=== PATIENT | male | born 1960 | race American Indian/Alaskan Native ===

== ENCOUNTER 2021-05-13 07:56 | Day surgery (SDC) | payer MEDICAID ==
[2021-05-13] MEDS ORDERED: ASPIRIN EC 325 MG TAB PO NR (08:41)
[2021-05-13] MEDS ORDERED: SODIUM CHLORIDE 0.9% 500 ML 500 ML IV SCH (09:00)
[2021-05-13 09:19] LABS: Basophils % (Auto) 0.7 % (0.0-1.8); Eosinophils # (Auto) 0.1 K/mm3 (0.0-0.4); Eosinophils % (Auto) 0.8 % (0.0-4.3); Lymphocytes # (Auto) 2.1 K/mm3 (1.2-5.4); Lymphocytes % (Auto) 32.3 % (13.4-35.0); Mean Corpuscular HGB Conc 33 % (32-34); Mean Corpuscular Volume 96 fl (84-94); Monocytes # (Auto) 0.4 K/mm3 (0.0-0.8); Monocytes % (Auto) 5.7 % (0.0-7.3); Platelet Count 232 K/mm3 (140-440); Red Blood Count 4.06 M/mm3 (3.65-5.03); Red Cell Distribution Width 13.1 % (13.2-15.2)
[2021-05-13 09:29] LABS: Blood Urea Nitrogen 10 mg/dL (9-20); Calcium 8.7 mg/dL (8.4-10.2); Hemolysis Index 17
[2021-05-13] MEDS ORDERED: HEPARIN 10,000 UNITS/10 ML VIAL ONE (09:32)
[2021-05-13] MEDS ORDERED: HEPARIN/NS 5000 UNIT/500ML 1,000 ML IR ONE (09:32)
[2021-05-13] MEDS ORDERED: LIDOCAINE (2%) 20 MG/1 ML VIAL 20 ML MDV INFILTRATI ONE (09:33)
[2021-05-13 09:37] LABS: BUN/Creatinine Ratio 17
[2021-05-13] MEDS ORDERED: CLOPIDOGREL 75 MG TAB ONE (09:37)
[2021-05-13 09:41] LABS: INR 0.85 (0.87-1.13)
[2021-05-13] MEDS: MIDAZOLAM 2 MG/2 ML INJ ONE ×2 (10:08→10:37)
[2021-05-13] MEDS: fentaNYL 100 MCG/2 ML INJ ONE ×2 (10:09→10:37)
[2021-05-13] MEDS ORDERED: HEPARIN/NS 5000 UNIT/500ML 500 ML IR ONE (10:27)
[2021-05-13] MEDS ORDERED: traMADol 50 MG TAB PO PRN (10:56)
[2021-05-13] MEDS ORDERED: HYDROcodone/ACETAMINOPHEN 5-325 MG TAB PO PRN (10:56)
[2021-05-13] MEDS ORDERED: CLOPIDOGREL 75 MG TAB PO ONE (10:59)
--- NOTE | 2021-05-13 11:00 | Short Stay Summary ---
Short Stay Documentation Date of service: 05/13/21 - History H&P: obtained from office - Allergies and Medications Current Medications: Allergies No Known Allergies Allergy (Unverified 05/13/21 08:41) Home Medications Medication Instructions Recorded Confirmed Last Taken Type AtorvaSTATin [Lipitor] 10 mg PO QHS 05/13/21 05/13/21 05/12/21 History 10 MG Baclofen [Lioresal] 10 mg PO DAILY 05/13/21 05/13/21 05/12/21 History 10 MG Clopidogrel [Plavix] 75 mg PO QDAY 05/13/21 05/13/21 05/13/21 History 75 MG Gabapentin [Neurontin] 600 mg PO Q8H 05/13/21 05/13/21 05/12/21 History 3 TABS amLODIPine [Norvasc] 10 mg PO DAILY 05/13/21 05/13/21 05/12/21 History 10 MG Active Medications Clopidogrel Bisulfate (Clopidogrel 75 Mg Tab) 75 mg PO QDAY ONE Stop: 05/13/21 11:00 Sodium Chloride (Nacl 0.9% 500 Ml) 500 mls @ 50 mls/hr IV DIRECT NATAN Stop: 05/13/21 18:59 Last Admin: 05/13/21 10:08 Dose: 200 mls - Brief post op/procedure progress note Date of procedure: 05/13/21 Pre-op diagnosis: cad Post-op diagnosis: same - Disposition Condition at discharge: Good Disposition: 01 HOME / SELF CARE / HOMELESS Short Stay Discharge Plan Activity: no restrictions Weight Bearing Status: Non-Weight Bearing Diet: low cholesterol, low salt Wound: keep clean and dry Follow up with: ARSALAN DOWNS MD [Primary Care Provider] - 7 Days
[2021-05-13] MEDS ORDERED: SODIUM CHLORIDE 0.9% 1000 ML 1,000 ML IV SCH (12:00)
--- NOTE | 2021-05-13 12:27 | Cardiac Catherization Report ---
DATE OF PROCEDURE: 05/13/2021 CORONARY ANGIOGRAM REPORT PROCEDURES PERFORMED: 1. Selective left and right coronary angiogram. 2. Left ventriculogram. 3. Attempted PCI of the right coronary artery. 4. Successful deployment of Mynx extravascular closure device. AWNING SPREADER: Anatoly Villavicencio MD INDICATIONS: The patient is a 60-year-old with multiple cardiac risk factors and history of CVA. He does not walk on a regular basis at baseline secondary to CVA and residual hemiparesis and hemiplegia. He underwent a stress test that showed significant area of infarction with wall motion abnormality. In view of this, we decided to proceed with the left heart catheterization. PROCEDURE DETAILS: 1. The patient was prepped and draped in a sterile fashion after informed consent. 2. The right groin was anesthetized using local Lidocaine infiltration. 3. The right femoral artery was entered using the Seldinger technique, followed by the placement of a 6-Z[place]an sheath. 4. Selective left and right coronary angiography was performed using 6-[place]an Kera catheters. Angiograms were done in multiple projections. 5. Selective left ventricular angiography was done using a 6-[place]an pigtail catheter. Left ventricular angiography was performed in the right anterior oblique projection. 6. The catheters were withdrawn, the sheath removed, and hemostasis was achieved. 7. The patient was transferred to the post cardiac catheterization unit in stable condition. There were no complications, equipment malfunction, or technical difficulties. Mynx extravascular closure device was used. Complete hemostasis obtained. FINDINGS: HEMODYNAMICS: AO 112/69, LV 112, LVEDP is 20. LEFT VENTRICULOGRAPHY: Done in 30-degree MOLINA projection shows grossly preserved LV systolic function. Study inadequate to assess wall motion abnormalities. ANGIOGRAM DETAILS: 1. Left main is angiographically normal. 2. LAD is a medium caliber highly ectatic vessel. It is completely occluded distally. 3. The circumflex is a medium caliber highly ectatic vessel. OM1 has a long 70% ectatic stenosis. 4. The right coronary artery is a large heavily calcified ectatic vessel. There is an 80% proximal stenosis followed by a 90% distal stenosis. 5. Faint grade I-II contralateral collaterals are seen filling the distal LAD. IMPRESSION: 1. Severe triple vessel coronary artery disease including 100% occlusion of the left anterior descending, 70% occlusion of the obtuse marginal, 90% distal and 80% mid right coronary artery stenosis. 2. Grossly preserved left ventricular function. PLAN: In short, the patient is a 60-year-old with a history of CVA and residual hemiparesis, presenting with a stress test that showed a large area of infarct. Cardiac catheterization today revealed triple vessel disease. LAD is distally occluded and is not amenable for PCI. We will proceed with PCI of the right coronary artery and OM. PERCUTANEOUS INTERVENTION DETAILS: Intravenous heparin was used to maintain therapeutic ACT. A JR4 guide catheter was used to engage the right coronary artery. A Runthrough wire was used as a standard guidewire. However, we were unable to advance even a 1.5 mm compliant balloon across the distal calcified stenosis. A mihaela wire technique was used and still we were unable to advance the wire. The standard procedure was stopped. Angiogram revealed no worsening of the stenosis, no residual thrombus or dissection. The guide was removed. Femoral angiogram showed sheath above bifurcation. Mynx extravascular closure device was used to obtain complete hemostasis. IMPRESSION: Heavily calcified distal right coronary artery stenosis with unsuccessful percutaneous coronary intervention. PLAN: 1. Continue dual antiplatelet therapy. 2. The patient will be referred as an outpatient basis to be lined up for Rotablator assisted PCI of the right coronary artery. 3. Routine groin care. TID: [id number] RECEIPT: [id number] THONG/TRISTIN/RADHA SANTOYO
[2021-05-13 14:32] VITALS: BP 122/73
== END 2021-05-13 07:57 | disposition home or self-care (01) ==
LOC: CATHLABREC 07:56
PROVIDERS: ATTEND Internal Medicine Cardiovascular Disease
DX: R94.39 Abnormal result of other cardiovascular function study (principal); I25.10 Atherosclerotic heart disease of native coronary artery without angina pectoris; I10 Essential (primary) hypertension; E78.5 Hyperlipidemia, unspecified; Z86.73 Personal history of transient ischemic attack (TIA), and cerebral infarction without residual deficits; Z79.82 Long term (current) use of aspirin; Z79.899 Other long term (current) drug therapy; Z98.890 Other specified postprocedural states
CPT/HCPCS: 36415; 80048; 85025; 85610; 85730; 92920; 93005; 93458; 99156; 99157; C1725; C1760; C1769; C1887; C1894; J1644; J2250; J3010; J3490; J7040; Q9967